=== PATIENT | female | born 1975 | race Caucasian/White ===

== ENCOUNTER 2017-09-13 08:09 | Outpatient (CLI) | payer OTHER | END 2017-09-13 11:26 | disposition home or self-care (01) | LOC: TOM 08:09 | DX: S22.31XA Fracture of one rib, right side, initial encounter for closed fracture (principal) ==

== ENCOUNTER 2018-05-10 11:56 | Outpatient (CLI) | payer OTHER | END 2018-05-10 17:00 | disposition home or self-care (01) | LOC: RAD 11:56 | DX: N94.89 Other specified conditions associated with female genital organs and menstrual cycle (principal) ==

== ENCOUNTER 2020-06-03 13:04 | Outpatient (CLI) | payer OTHER | END 2020-06-03 13:16 | disposition home or self-care (01) | LOC: RAD 13:04 | PROVIDERS: ATTEND General Practice | DX: R05 Cough (principal) ==

== ENCOUNTER → 2020-09-18 | Outpatient (CLI) | payer OTHER | END | disposition home or self-care (01) | LOC: PRENATAL 09-17 09:30 | PROVIDERS: ATTEND Obstetrics & Gynecology Maternal & Fetal Medicine | DX: Z36.89 Encounter for other specified antenatal screening (principal); O36.80X1 Pregnancy with inconclusive fetal viability, fetus 1; O09.811 Supervision of pregnancy resulting from assisted reproductive technology, first trimester; O09.511 Supervision of elderly primigravida, first trimester; Z3A.12 12 weeks gestation of pregnancy ==

== ENCOUNTER → 2020-10-30 | Outpatient (CLI) | payer OTHER | END | disposition home or self-care (01) | LOC: PRENATAL 09:00 | PROVIDERS: ATTEND Obstetrics & Gynecology Maternal & Fetal Medicine | DX: O35.0XX1 Maternal care for (suspected) central nervous system malformation in fetus, fetus 1 (principal); O35.3XX1 Maternal care for (suspected) damage to fetus from viral disease in mother, fetus 1; O98.512 Other viral diseases complicating pregnancy, second trimester; O09.512 Supervision of elderly primigravida, second trimester; O09.812 Supervision of pregnancy resulting from assisted reproductive technology, second trimester; O44.02 Complete placenta previa NOS or without hemorrhage, second trimester; Z36.89 Encounter for other specified antenatal screening; Z3A.19 19 weeks gestation of pregnancy ==

== ENCOUNTER → 2021-01-08 | Outpatient (CLI) | payer OTHER | END | disposition home or self-care (01) | LOC: PRENATAL 08:44 | PROVIDERS: ATTEND Obstetrics & Gynecology Maternal & Fetal Medicine | DX: O26.843 Uterine size-date discrepancy, third trimester (principal); O09.513 Supervision of elderly primigravida, third trimester; O09.813 Supervision of pregnancy resulting from assisted reproductive technology, third trimester; O44.03 Complete placenta previa NOS or without hemorrhage, third trimester; Z36.89 Encounter for other specified antenatal screening; Z3A.29 29 weeks gestation of pregnancy ==

== ENCOUNTER 2021-03-08 13:00 | Inpatient (IN) | payer OTHER ==
[~2021-03-08] VITALS: Ht 160 cm; Wt 3.2 kg
[2021-03-24] MEDS ORDERED: PROTONIX40 MG PO (23:06)
[2021-03-24] MEDS ORDERED: NASAL MIST126 ML (23:07)
[2021-03-24] MEDS ORDERED: PRENATAL CAPLE1 EAC1 PO (23:07)
== END 2021-04-05 14:55 | disposition home or self-care (01) | DRG 787 ==
LOC: OB/GYN 03-24 22:41 → LDR 03-24 22:41 → O/R 03-24 22:41 → LDR 03-24 23:06 → O/R 03-26 11:13 → OB/GYN 03-26 13:00
PROVIDERS: ADMIT Obstetrics & Gynecology; ATTEND Obstetrics & Gynecology
PROC: 3E0P7VZ Introduction of Hormone into Female Reproductive, Via Natural or Artificial Opening (ICD-10-PCS; 2021-03-24)
PROC: 4A1HXFZ Monitoring of Products of Conception, Cardiac Rhythm, External Approach (ICD-10-PCS; 2021-03-24)
PROC: 10D00Z1 Extraction of Products of Conception, Low, Open Approach (ICD-10-PCS; principal; 2021-03-26 11:45)
DX: O61.0 Failed medical induction of labor (principal); R78.81 Bacteremia; O86.20 Urinary tract infection following delivery, unspecified; B95.2 Enterococcus as the cause of diseases classified elsewhere; Z3A.39 39 weeks gestation of pregnancy; Z37.0 Single live birth; Z20.822 Contact with and (suspected) exposure to COVID-19

== ENCOUNTER 2021-05-08 19:49 | Inpatient (IN) | payer OTHER ==
[~2021-05-08] VITALS: Ht 160 cm; Wt 52.6 kg
[~2021-05-08 19:49] MED LIST: NASAL MIST126 ML; PRENATAL CAPLE1 EAC1 PO; PROTONIX40 MG PO
[2021-05-10] MEDS ORDERED: SERTRALINE HCL50 MG (16:48)
[2021-05-10] MEDS ORDERED: PANTOPRAZOLE SO40 MG (16:49)
[2021-05-12] MEDS ORDERED: AMOX-CLAV 875-1 EAC1 PO ×2 (13:46→13:48)
== END 2021-05-12 14:06 | disposition home or self-care (01) | DRG 816 ==
LOC: ER 19:49 → OB/GYN 05-09 12:46
PROVIDERS: ADMIT Obstetrics & Gynecology; ATTEND Obstetrics & Gynecology
PROC: BW2110Z Computerized Tomography (CT Scan) of Abdomen and Pelvis using Low Osmolar Contrast, Unenhanced and Enhanced (ICD-10-PCS; principal; 2021-05-09)
PROC: BU46ZZZ Ultrasonography of Uterus (ICD-10-PCS; 2021-05-09)
DX: D72.828 Other elevated white blood cell count (principal); Z20.822 Contact with and (suspected) exposure to COVID-19

== ENCOUNTER 2021-07-20 15:50 | Outpatient (CLI) | payer OTHER ==
[~2021-07-20 15:50] MED LIST changes: +AMOX-CLAV 875-1 EAC1 PO; +PANTOPRAZOLE SO40 MG; +SERTRALINE HCL50 MG
== END 2021-07-20 16:00 | disposition home or self-care (01) ==
LOC: PPH VACUNA 15:50
PROVIDERS: ATTEND Emergency Medicine Pediatric Emergency Medicine
DX: Z23 Encounter for immunization (principal)

== ENCOUNTER 2024-05-20 09:50 | Outpatient (CLI) | payer OTHER | END 2024-05-20 10:03 | disposition home or self-care (01) | LOC: MAMO-SONO 09:50 | PROVIDERS: ATTEND General Practice | DX: N60.11 Diffuse cystic mastopathy of right breast (principal); N60.12 Diffuse cystic mastopathy of left breast ==